=== PATIENT | female | born 1955 | race Caucasian/White ===

== ENCOUNTER → 2016-12-17 | Outpatient (CLI) | payer OTHER ==
--- NOTE | 2016-12-17 14:45 | REPMRS ---
Patient History The patient states she had a clinical breast exam in 12/2016. Patient is postmenopausal. Family history of breast cancer in mother at age 91 and pancreatic cancer in maternal grandmother at age 50 or over. Benign excisional biopsy of the left breast, 2011. Benign excisional biopsy of the left breast, 2010. Digital Woman Screen Mammo: December 17, 2016 - Exam #: [id number] Bilateral CC and MLO view(s) were taken. Technologist: Ava Kessler, Technologist Prior study comparison: September 19, 2015, digital woman screen mammo performed at [facility] [employer] [facility] [employer]. September 14, 2014, digital woman screen mammo performed at [facility] [id number]. FINDINGS: There are scattered fibroglandular densities. There has been no change in the appearance of the mammogram from the prior studies. There is a mild amount of residual fibroglandular tissue which is fairly symmetric. There is no interval development of dominant mass, architectural distortion, or clustered microcalcification suggestive of malignancy. ASSESSMENT: BI-RADS/ACR category 1 mammogram. Negative. Recommendation Routine screening mammogram in 1 year (for women over age 40). This mammogram was interpreted with the aid of an FDA-approved computer-aided dectection system. Electronically Signed By: Yogi Flores MD 12/17/16 [id number]
== END ==
LOC: M WHC 12:47
PROVIDERS: ATTEND Nurse Practitioner Family
DX: Z12.31 Encounter for screening mammogram for malignant neoplasm of breast (principal); Z78.0 Asymptomatic menopausal state; Z80.3 Family history of malignant neoplasm of breast

== ENCOUNTER → 2019-06-08 | Outpatient (REF) | payer MEDICARE, OTHER | LOC: M SFHCWAGY 14:56 | PROVIDERS: ATTEND Nurse Practitioner Family | DX: Z12.4 Encounter for screening for malignant neoplasm of cervix (principal); N95.2 Postmenopausal atrophic vaginitis ==

== ENCOUNTER → 2019-06-08 | Outpatient (CLI) | payer MEDICARE, OTHER ==
--- NOTE | 2019-06-08 15:41 | REPMRS ---
Patient History The patient states she had a clinical breast exam in 05/2019. Patient is postmenopausal. Family history of breast cancer at age 91 in mother, pancreatic cancer at age 50 or over in maternal grandmother. Benign excisional biopsy of the left breast, 2011. Benign excisional biopsy of the left breast, 2010. No Hormone Replacement Therapy 3D TOMOSYNTHESIS WAS PERFORMED. The [facility] lifetime risk for breast cancer is 15.8%. Digital Woman Screen Mammo: June 08, 2019 - Exam #: [id number] Bilateral CC and MLO view(s) were taken. Technologist: Ava Kessler, Technologist Prior study comparison: April 13, 2018, bilateral digital woman screen mammo performed at [facility]. December 17, 2016, digital woman screen mammo performed at [facility] [facility]. FINDINGS: There are scattered fibroglandular densities. There has been no change in the appearance of the mammogram from the prior studies. There is a mild amount of residual fibroglandular tissue which is fairly symmetric. There is no interval development of dominant mass, architectural distortion, or clustered microcalcification suggestive of malignancy. Assessment: BI-RADS/ACR category 1 mammogram. Negative Mammogram. Recommendation Routine screening mammogram in 1 year (for women over age 40). This mammogram was interpreted with the aid of an FDA-approved computer-aided dectection system. Electronically Signed By: Yogi Flores MD 06/08/19 1255
== END ==
LOC: M WHC 14:05
PROVIDERS: ATTEND Nurse Practitioner Family
DX: Z01.419 Encounter for gynecological examination (general) (routine) without abnormal findings (principal); Z12.31 Encounter for screening mammogram for malignant neoplasm of breast; Z78.0 Asymptomatic menopausal state; Z80.3 Family history of malignant neoplasm of breast; Z86.018 Personal history of other benign neoplasm
CPT/HCPCS: 77063; 77067; G0101; G0123

== ENCOUNTER → 2020-05-18 | Outpatient (CLI) | payer MEDICARE, OTHER | LOC: M PLALAB 10:20 | PROVIDERS: ATTEND Nurse Practitioner Family | DX: Z13.9 Encounter for screening, unspecified (principal) ==

== ENCOUNTER → 2020-05-18 | Outpatient (CLI) | payer MEDICARE, OTHER ==
--- NOTE | 2020-05-18 10:44 | REPMRS ---
Patient History The patient states she had a clinical breast exam in May 2020.Family history of breast cancer at age 91 in mother, pancreatic cancer at age 50 or over in maternal grandmother. Benign excisional biopsy of the left breast, 2011. Benign excisional biopsy of the left breast, 2010. No Hormone Replacement Therapy 3D TOMOSYNTHESIS WAS PERFORMED. The [facility] lifetime risk for breast cancer is 15.0%. VOLPARA DENSITY B. Digital Woman Screen Mammo: May 18, 2020 - Exam #: [id number] Bilateral CC and MLO view(s) were taken. Technologist: Tiff Castro, Technologist Prior study comparison: June 08, 2019, bilateral digital woman screen mammo performed at [facility]. April 13, 2018, bilateral digital woman screen mammo performed at [facility]. FINDINGS: There are scattered fibroglandular densities. There has been no change in the appearance of the mammogram from the prior studies. There is a mild amount of residual fibroglandular tissue which is fairly symmetric. There is no interval development of dominant mass, architectural distortion, or clustered microcalcification suggestive of malignancy. Assessment: BI-RADS/ACR category 1 mammogram. Negative Mammogram. Recommendation Routine screening mammogram in 1 year (for women over age 40). This mammogram was interpreted with the aid of an FDA-approved computer-aided dectection system. Electronically Signed By: Yogi Flores MD 05/18/20 1044
== END ==
LOC: M WHC 09:20
PROVIDERS: ATTEND Nurse Practitioner Family
DX: Z12.31 Encounter for screening mammogram for malignant neoplasm of breast (principal); Z80.3 Family history of malignant neoplasm of breast; Z86.018 Personal history of other benign neoplasm

== ENCOUNTER → 2021-03-29 | Outpatient (CLI) | payer MEDICARE, OTHER | LOC: M LABSMTC 10:41 | PROVIDERS: ATTEND Anesthesiology | DX: Z01.812 Encounter for preprocedural laboratory examination (principal); Z20.822 Contact with and (suspected) exposure to COVID-19 ==

== ENCOUNTER 2021-04-03 07:56 | Day surgery (SDC) | payer MEDICARE, OTHER ==
[~2021-04-03] VITALS: Ht 162.6 cm; Wt 83.2 kg
[~2021-04-03 07:56] MED LIST: NS 1,000 ML IV ONE
[2021-04-03] MEDS ORDERED: propofoL 200 MG/20 ML VIAL As Ordered ONE (09:59)
[2021-04-03] MEDS ORDERED: LIDOCAINE 2% 100MG/5ML SDV (FOR ANES.) As Ordered ONE (09:59)
--- NOTE | 2021-04-03 10:57 | ROOR ---
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 Procedure: Pre-Anesthesia Assessment: - The heart rate, respiratory rate, oxygen saturations, blood pressure, adequacy of pulmonary ventilation, and response to care were monitored throughout the procedure. The Colonoscope was introduced through the anus and advanced to the cecum, identified by appendiceal orifice and ileocecal valve. The colonoscopy was performed without difficulty. The patient tolerated the procedure well. The quality of the bowel preparation was good. Findings: The perianal and digital rectal examinations were normal. Three sessile polyps were found in the sigmoid colon and cecum. The polyps were diminutive in size. These polyps were removed with a cold snare. Resection and retrieval were complete. Mild sigmoid diverticulosis and small internal hemorrhoids. The exam was otherwise without abnormality on direct and retroflexion views. Impression: - Three diminutive polyps in the sigmoid colon and in the cecum, removed with a cold snare. Resected and retrieved. - Mild sigmoid diverticulosis and small internal hemorrhoids. - The examination was otherwise normal on direct and retroflexion views. Recommendation: - Repeat colonoscopy in 5 years for screening purposes. Procedure Code(s): --- Professional --- 92943, Colonoscopy, flexible; with removal of tumor(s), polyp(s), or other lesion(s) by snare technique Diagnosis Code(s): --- Professional --- Z15.09, Genetic susceptibility to other malignant neoplasm K63.5, Polyp of colon CPT copyright 2019 [employer]. All rights reserved. The codes documented in this report are preliminary and upon surgical coder review may be revised to meet current compliance requirements. Anurag Alejandra MD Anurag Alejandra MD 04/03/2021 10:57:09 AM Electronically signed by Anurag Alejandra MD Number of Addenda: 0 Note Initiated On: 04/03/2021 10:27 AM Estimated Blood Loss: Estimated blood loss: none.
[2021-04-03 11:15] VITALS: BP 125/60
== END 2021-04-03 11:19 | disposition home or self-care (01) ==
LOC: M OPP 07:56
PROVIDERS: ATTEND Internal Medicine Gastroenterology
DX: Z12.11 Encounter for screening for malignant neoplasm of colon (principal); Z86.010 Personal history of colon polyps; Z15.09 Genetic susceptibility to other malignant neoplasm; D12.0 Benign neoplasm of cecum; D12.5 Benign neoplasm of sigmoid colon; K57.30 Diverticulosis of large intestine without perforation or abscess without bleeding; K64.8 Other hemorrhoids; Z79.899 Other long term (current) drug therapy; Z91.048 Other nonmedicinal substance allergy status

== ENCOUNTER → 2021-05-31 | Outpatient (CLI) | payer MEDICARE, OTHER ==
--- NOTE | 2021-05-31 16:12 | REPMRS ---
Patient History The patient states she had a clinical breast exam in May 2021. Family history of breast cancer at age 91 in mother, pancreatic cancer at age 50 or over in maternal grandmother. Benign excisional biopsy of the left breast, 2011. Benign excisional biopsy of the left breast, 2010. No Hormone Replacement Therapy Tomosynthesis is performed. Volpara breast density is b. [facility] 14.2%. Moderna vaccine 10/15/20 left arm. 11/15/20 left arm. Patient states no breast complaints today. Patient has signed MRS History Sheet. Digital Woman Screen Mammo: May 31, 2021 - Exam #: [id number] Bilateral CC and MLO view(s) were taken. Technologist: RT Janel Prior study comparison: May 18, 2020, bilateral digital woman screen mammo performed at [facility] [place] [facility]. June 08, 2019, bilateral digital woman screen mammo performed at [facility] [place] [facility]. FINDINGS: There are scattered fibroglandular densities. There has been no change in the appearance of the mammogram from the prior studies. There is a mild amount of residual fibroglandular tissue which is fairly symmetric. There is no interval development of dominant mass, architectural distortion, or clustered microcalcification suggestive of malignancy. Assessment: BI-RADS/ACR category 1 mammogram. Negative Mammogram. Recommendation Routine screening mammogram in 1 year (for women over age 40). This mammogram was interpreted with the aid of an FDA-approved computer-aided dectection system. Electronically Signed By: Yogi Flores MD 05/31/21 2055
== END ==
LOC: M WHC 14:05
PROVIDERS: ATTEND Advanced Practice Midwife
DX: Z12.31 Encounter for screening mammogram for malignant neoplasm of breast (principal); Z80.3 Family history of malignant neoplasm of breast; Z90.710 Acquired absence of both cervix and uterus; Z01.419 Encounter for gynecological examination (general) (routine) without abnormal findings
CPT/HCPCS: 77063; 77067; G0101

== ENCOUNTER → 2022-04-18 | Outpatient (CLI) | payer MEDICARE, OTHER | LOC: M CARPUL 13:09 | PROVIDERS: ATTEND Internal Medicine Cardiovascular Disease | DX: R01.1 Cardiac murmur, unspecified (principal); I35.8 Other nonrheumatic aortic valve disorders ==

== ENCOUNTER → 2023-02-27 | Outpatient (CLI) | payer MEDICARE, OTHER | LOC: M WHC 10:39 | PROVIDERS: ATTEND Nurse Practitioner Family | DX: Z12.31 Encounter for screening mammogram for malignant neoplasm of breast (principal) ==

== ENCOUNTER → 2023-02-27 | Outpatient (REF) | payer MEDICARE, OTHER | LOC: M SFHCWAGY 18:04 | PROVIDERS: ATTEND Nurse Practitioner Family | DX: Z12.4 Encounter for screening for malignant neoplasm of cervix (principal); N95.2 Postmenopausal atrophic vaginitis | CPT/HCPCS: 87624; G0123 ==

== ENCOUNTER → 2023-04-30 | Outpatient (CLI) | payer MEDICARE, OTHER ==
[2023-04-30 09:28] LABS: ALBUMIN 3.7 G/DL (3.2-5.2); ALKALINE PHOSPHATASE 90 U/L (46-116); ALT/SGPT 21 U/L (7.0-40); AST/SGOT 10 U/L (<34); BILIRUBIN,TOTAL 1.2 MG/DL (0.3-1.2); BLOOD UREA NITROGEN 17 MG/DL (9-23); CALCIUM LEVEL 9.3 MG/DL (8.3-10.6); CARBON DIOXIDE LEVEL 30 MMOL/L (20-31); CHLORIDE LEVEL 105 MMOL/L (98-107); CHOLESTEROL LEVEL 234 MG/DL (<200); CHOLESTEROL RISK RATIO 4.57 (<5); CREATININE FOR GFR 0.64 MG/DL (0.55-1.30); GLOMERULAR FILTRATION RATE > 60.0 (>45); GLUCOSE, FASTING 134 MG/DL (74-106); HDL CHOLESTEROL 51.1 MG/DL (>40); LDL CHOLESTEROL 156.5 MG/DL (<100); NON-HDL-C 182.9 MG/DL; POTASSIUM SERUM 4.1 MMOL/L (3.5-5.1); SODIUM LEVEL 143 MMOL/L (136-145); TOTAL PROTEIN 6.6 G/DL (5.7-8.2); TRIGLYCERIDES LEVEL 132 MG/DL (<150)
== END ==
LOC: M LAB 08:23
PROVIDERS: ATTEND Physician Assistant
DX: E78.00 Pure hypercholesterolemia, unspecified (principal); R94.31 Abnormal electrocardiogram [ECG] [EKG]

== ENCOUNTER → 2024-03-31 | Outpatient (CLI) | payer MEDICARE, OTHER | LOC: M WHC 11:06 | PROVIDERS: ATTEND Nurse Practitioner Family | DX: Z12.31 Encounter for screening mammogram for malignant neoplasm of breast (principal) ==

== ENCOUNTER → 2025-04-04 | Outpatient (CLI) | payer MEDICARE, OTHER | LOC: M WHC 13:06 | PROVIDERS: ATTEND Nurse Practitioner Family | DX: Z12.31 Encounter for screening mammogram for malignant neoplasm of breast (principal); R92.313 Mammographic fatty tissue density, bilateral breasts ==

== ENCOUNTER → 2025-05-18 | Outpatient (CLI) | payer MEDICARE, OTHER | LOC: M CARPUL 15:32 | PROVIDERS: ATTEND Physician Assistant | DX: I08.0 Rheumatic disorders of both mitral and aortic valves (principal) ==